=== PATIENT | female | born 1970 | race Caucasian/White ===

== ENCOUNTER 2023-03-26 18:03 | Emergency (ER) | payer OTHER ==
[2023-03-26 18:12] VITALS: BP 133/84; PULSE 73; RESP 17; TEMP 97.9; BMI 24.3
== END 2023-03-26 18:28 | disposition home or self-care (01) ==
LOC: JERFT 18:03
DX: S80.11XA Contusion of right lower leg, initial encounter (principal); W01.0XXA Fall on same level from slipping, tripping and stumbling without subsequent striking against object, initial encounter; Y93.02 Activity, running; Y92.009 Unspecified place in unspecified non-institutional (private) residence as the place of occurrence of the external cause
CPT/HCPCS: 99282-25

== ENCOUNTER 2024-04-26 09:37 | Emergency (ER) | payer BC, OTHER ==
[2024-04-26 09:41] VITALS: BP 157/85; PULSE 67; RESP 18; TEMP 97.7; BMI 23.6
[2024-04-26] MEDS ORDERED: LIDOCAINE HCL 2% (20ML MULTI-DOSE VIAL) ONE (09:45)
[2024-04-26] MEDS ORDERED: LIDOCAINE 2.5%/PRILOCAINE 2.5% (5 Gram/TUBE) TP ONE (10:11)
== END 2024-04-26 10:42 | disposition home or self-care (01) ==
LOC: JER 09:37
DX: T63.444A Toxic effect of venom of bees, undetermined, initial encounter (principal)
CPT/HCPCS: 99283-25